=== PATIENT | male | born 1960 | race Caucasian/White ===

== ENCOUNTER 2016-12-12 05:53 | Emergency (ER) | payer BC ==
[~2016-12-12] VITALS: Ht 182.9 cm; Wt 77.3 kg
[2016-12-12] MEDS ORDERED: MULT-1249 PO (06:05)
[2016-12-12] MEDS ORDERED: BENA1TAB19 PO (06:05)
[2016-12-12] MEDS ORDERED: OMEG-135 PO (06:05)
[2016-12-12 06:41] LABS: APPEARANCE,URINE CLOUDY (CLEAR); GLUCOSE, URINE (UA) NEGATIVE (NEGATIVE); KETONES,URINE NEGATIVE (NEGATIVE); LEUKOCYTE ESTERASE ,URINE LARGE (NEGATIVE); OCCULT BLOOD,URINE TRACE (NEGATIVE); PH,URINE 6.5 (5.0-8.0); PROTEIN,URINE NEGATIVE (NEGATIVE)
[2016-12-12 06:42] LABS: ADD UA MICROSCOPIC YES
[2016-12-12 07:01] LABS: SQUAMOUS EPITHELIAL CELL,UR Few /LPF (None Seen); WBC,URINE 26-50 /HPF (0-5)
[2016-12-12 07:20] VITALS: BP 117/83
[2016-12-12] MEDS ORDERED: DOXYCYCLINE 100 MG CAPSULE PO ONE (07:30)
[2016-12-12] MEDS ORDERED: LIDOCAINE HCL/PF 1% 2 ML VIAL IM ONE (07:30)
[2016-12-12] MEDS ORDERED: CefTRIAXone SODIUM 1 GM/VIAL IM ONE (07:30)
[2016-12-12] MEDS ORDERED: AZITHROMYCIN 250 MG TABLET PO ONE (08:00)
== END 2016-12-12 08:23 | disposition home or self-care (01) ==
LOC: EMS 05:54
DX: N39.0 Urinary tract infection, site not specified (principal); I10 Essential (primary) hypertension; F17.210 Nicotine dependence, cigarettes, uncomplicated
CPT/HCPCS: 81001; 87077; 87086; 87186; 96372; 99284; J0696; J3490